=== PATIENT | male | born 1930 | race Caucasian/White ===

== ENCOUNTER 2018-01-29 14:30 | Outpatient (CLI) | payer MEDICARE ==
--- NOTE | 2018-01-29 16:18 | MRI ---
LEFT HIP MRI WITHOUT IV CONTRAST: History: 87-year-old male with history of left hip pain, chronic left hip pain, and quadriceps pain for some t darcie. Technique: Multiplanar, multisequence MRI examination of the left hip is performed. There is some bilateral hip joint arthrosis with some joint space loss. There is evidence for anterior labral tear with somewhat poorly defined anterior labrum with what appears to be an associated approximately 1.0 [address] anteriorly located paralabral cyst extending cranial to the level of the anterior acetabulum as w ell as a separate small subchondral cyst noted anteriorly and somewhat more centrally. The lateral hi p labrum is somewhat blunted. This anterior labral tear may well extend into the more lateral hip lab rum with some associated degenerative fraying. There is also some abnormal signal associated with the right hip labrum anteriorly, evidence for degenerative type labral tear. No significant abnormal mar row signal to suggest avascular necrosis, fracture, or acute stress injury. There is some subtle fat stranding in the trochanteric bursa. Bilateral implant changes are incidentally noted, but not comple tely evaluated on this study. No evidence of acute muscle or tendon injury. 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 Evidence for anterior labral tear with promin ent associated paralabral cysts. This tear probably extends into the lateral labrum with some associa arline labral degeneration involving both right and left hip chaz. Small anterior superior subchondral cyst on the left side. No evidence for significant abnormal marrow signal. Other findings as above. POS: [facility]
== END 2018-01-29 14:31 | disposition home or self-care (01) ==
LOC: SCSMRI 14:30
PROVIDERS: ATTEND Orthopaedic Surgery
DX: M25.552 Pain in left hip (principal); M16.0 Bilateral primary osteoarthritis of hip; M85.68 Other cyst of bone, other site

== ENCOUNTER 2019-02-26 07:44 | Outpatient (CLI) | payer MEDICARE ==
--- NOTE | 2019-02-26 09:37 | MRI ---
LUMBAR SPINE MRI NONCONTRAST: INDICATION: Sciatica. FINDINGS: There is degenerative marrow signal alteration without acute marrow edema, or evidence of compression fracture within the lumbar spine. Multiple end plate degeneration noted with Schmorl's nodes at mul tiple levels. Associated disk space narrowing, and marginal osteophytosis present. The conus medull dixon is normal in morphology, terminating at the superior L1 level. There is multilevel bilateral mo derate facet osteoarthritis which is greatest inferiorly. L5-S1: Moderate central canal stenosis is present, as a result of broad-based disk-osteophyte and fa cet osteoarthritis. This results in moderate left and mild right neural foraminal narrowing. L4-5: There is moderate central canal stenosis as a result of broad-based disk-osteophyte complex s uperimposed upon bilateral degenerative facet hypertrophy and redundancy of ligamentum flava. Modera te, right greater than left, neural foraminal stenosis is present. L3-4: Broad-based disk-osteophyte complex results in moderate central canal stenosis and mild to mod erate right, mild left neural foraminal stenosis. L2-3: Disk-osteophyte complex results in mild narrowing of the central canal and mild bilateral neur al foraminal narrowing. L1-2: Broad-based disk-osteophyte is present with mild narrowing of the central canal. No high-grad e foraminal stenosis. IMPRESSION: Multilevel degenerative changes of the lumbar spine as outlined above. Findings are most pronounced inferiorly, involving L4-5 and L5-S1 levels. POS: C
== END 2019-02-26 07:45 | disposition home or self-care (01) ==
LOC: SCSMRI 07:44
PROVIDERS: ATTEND Orthopaedic Surgery
DX: M54.32 Sciatica, left side (principal); M47.816 Spondylosis without myelopathy or radiculopathy, lumbar region
CPT/HCPCS: 72148